=== PATIENT | male | born 1955 | race Caucasian/White ===

== ENCOUNTER 2018-04-26 20:08 | Emergency (ER) | payer OTHER ==
[2018-04-26 21:18] LABS: Hemoglobin 15.6 g/dL (14.0-18.0); Mean Corpuscular Hemoglobin 29.6 pg (27.0-31.0); Mean Corpuscular Volume 87.1 fL (78.0-98.0); RBC Distribution Width 11.9 % (11.5-14.5); Red Blood Cell (RBC) Count 5.27 mill/uL (4.70-6.10); White Blood Cell (WBC) Count 5.9 thou/uL (4.8-10.8)
[2018-04-26 21:34] LABS: #Lymphocytes 0.4 thou/uL (1.20-3.40); #Monocytes 0.2 thou/uL (0.11-0.59); #Neutrophils 5.2 thou/uL (1.40-6.50); %Basophils 0.1 % (0.0-1.0); %Eosinophils 0.1 % (0.0-10.0); %Lymphocytes 7.3 % (21.0-51.0); %Monocytes 4.1 % (0.0-10.0); %Neutrophils 88.3 % (42.0-75.0); Mean Platelet Volume 9.2 fL (7.4-10.4); PLT Morphology Comment Appears Decreased; Platelet Count 116 thou/uL (130-400); RBC Morphology Normal
[2018-04-26 21:40] LABS: ALT (SGPT) 28 U/L (8-55); AST (SGOT) 25 U/L (5-34); Albumin 4.1 g/dL (3.4-4.8); Alkaline Phosphatase 94 U/L (40-150); Anion Gap 16 mmol/L (10-20); BUN (Urea Nitrogen) 15 mg/dL (8.4-25.7); Bilirubin, Total 0.6 mg/dL (0.2-1.2); Calc. Creatinine Clearance 0 mL/min (70-130); Calcium 9.4 mg/dL (7.8-10.44); Carbon Dioxide 20 mmol/L (23-31); Chloride 96 mmol/L (98-107); Estimated GFR-MDRD 80; Globulin 3.8 g/dL (2.4-3.5); Glucose 124 mg/dL (80-115); Lipase 14 U/L (8-78); Potassium 4.4 mmol/L (3.5-5.1); Protein, Total 7.9 g/dL (5.8-8.1); Sodium 128 mmol/L (136-145)
[2018-04-26 21:48] LABS: Bilirubin Small (Negative); Blood, Urine Negative (Negative); Clarity CLEAR (Clear); Glucose, Urine (Dipstick) Negative (Negative); Leukocyte Negative (Negative); Nitrite Negative (Negative); Protein, Urine (Dipstick) 30 mg/dL (Neg-Trace); Specific Gravity, Urine 1.029 (1.002-1.036); pH, Urine 5.5 (5.0-9.0)
[2018-04-26 21:51] LABS: Bacteria/HPF None Seen HPF (None Seen); Hyaline Casts/LPF 0-3 HYALINE CAST LPF (0-3 Hyaline); Pathc Cast-AUWi Flag 0.14 (0-2.49); RBC/HPF 0-3 HPF (0-3); Squamous Epithelial None Seen HPF (0-3); WBC/HPF 0-3 HPF (0-3)
--- NOTE | 2018-04-26 22:27 | RAD ---
KUB: 04/26/18 PROVIDED CLINICAL HISTORY: Abdominal pain. FINDINGS: The abdominal bowel gas pattern is nonspecific as visualized. No radiographically apparent urinary tr act calculi. IMPRESSION: As above. POS: [facility]
[2018-04-26] MEDS ORDERED: Ondansetron PF 4 MG/2 ML Vial ONE (22:46)
[2018-04-26] MEDS ORDERED: Morphine 4 MG/ML VIAL ONE (23:00)
[2018-04-27] MEDS ORDERED: Ketorolac Tromethamine 30 MG/ML VIAL ONE (03:10)
[2018-04-27] MEDS ORDERED: diphenhydrAMINE 50 MG/ML VIAL ONE (03:13)
[2018-04-27] MEDS ORDERED: Metoclopramide HCl 10 MG/2 ML VIAL ONE (03:13)
--- NOTE | 2018-04-27 08:44 | CT ---
PRELIMINARY REPORT/[facility]/EMERGENTY AFTER-HOURS PROCEDURE CT Abdomen and Pelvis With Contrast EXAM DATE/TIME: 04/27/2018 12:23 AM CLINICAL HISTORY: 63 years old, male; Pain; Abdominal pain; Generalized; Patient HX: .63/m PT presents with complaint o f generalized abdominal pain for the past two days. PT was also seen by his pcp yesterday for a sinus infection and given RX for amoxicillin. No nausea, vomiting, diarrhea, chest pain, shortness of steven th, or urinary complaints. PT states he feels like he may be constipated and is not sure when his last bm is. PT took mag citrate and dulcolax supposity [employer] with no relief. TECHNIQUE: Axial computed tomography images of the abdomen and pelvis with intravenous contrast. Coronal reformatted images were created and reviewed. COMPARISON: No relevant prior studies available. FINDINGS: Lower thorax: No acute findings. ABDOMEN: Liver: Normal. No mass. Gallbladder and bile ducts: Normal. No calcified stones. No ductal dilation. Pancreas: Normal. No ductal dilation. Spleen: Normal. No splenomegaly. Adrenals: Normal. No mass. Kidneys and ureters: Small 1 cm cortical hypodensity mid pole left kidney, simple cyst. Stomach and bowel: Mild - moderate amount retained fluid-stool material throughout nondilated colon. Appendix: No evidence of appendicitis. Appendix - visualized portions appear normal. PELVIS: Bladder: Unremarkable as visualized. Reproductive: Prostate appears within normal limits. ABDOMEN and PELVIS: Intraperitoneal space: Normal. No free air. No significant fluid collection. Bones/joints: Chronic degenerative changes of the lumbar spine. Soft tissues: Unremarkable. Vasculature: Chronic atherosclerotic calcification of the vasculature. Lymph nodes: Normal. No enlarged lymph nodes. IMPRESSION: Mild - moderate amount retained fluid-stool material throughout nondilated colon. No evidence of blayne l obstruction. Thank you for allowing us to participate in the care of your patient. Dictated and Authenticated by: Altaf Covington MD 04/27/2018 12:57 AM Central Time ([place] & [place]) FINAL REPORT ABDOMEN AND PELVIC CT SCAN WITH IV CONTRAST: EMERGENCY AFTER HOURS EXAM TIME: 12:24 a.m. DATE: 04/27/2018. FINDINGS: Linear parenchymal changes in the lung bases, nonspecific, possibly subsegmental atelectasis or chron ic change. Fluid stool throughout the colon without evidence for abnormal colonic dilatation. No re nal calculus or obstruction. Normal-appearing appendix. No evidence for other significant acute process. POS: [facility]
== END 2018-04-27 04:05 | disposition home or self-care (01) ==
LOC: ERS 20:08
DX: K59.00 Constipation, unspecified (principal); F17.210 Nicotine dependence, cigarettes, uncomplicated
CPT/HCPCS: 36415; 74018; 74177; 80053; 81003; 81015; 83690; 85025; 96361; 96365; 96372; 96375; J1200; J1885; J2270; J2405; J2765